=== PATIENT | male | born 1930 | race Caucasian/White ===

== ENCOUNTER → 2016-06-26 | Outpatient (CLI) | payer OTHER | END | disposition home or self-care (01) | LOC: ROC 10:45 | PROVIDERS: ATTEND Radiology Radiation Oncology | DX: C61 Malignant neoplasm of prostate (principal) | CPT/HCPCS: 99212; G0463 ==

== ENCOUNTER 2016-07-24 07:24 | Emergency (ER) | payer OTHER ==
[~2016-07-24] VITALS: Ht 177.8 cm; Wt 95.0 kg
[2016-07-24] MEDS ORDERED: ONDANSETRON 2MG/ML, 2ML IVPush ONE (08:30)
[2016-07-24] MEDS ORDERED: MORPHINE SULFATE 4 MG/ML, 1ML IVPush PRN (08:30)
[2016-07-24] MEDS ORDERED: ONDANSETRON 2MG/ML, 2ML ONE (08:53)
[2016-07-24] MEDS ORDERED: MORPHINE SULFATE 4 MG/ML, 1ML ONE (08:53)
[2016-07-24 08:59] LABS: BLOOD UREA NITROGEN 27 mg/dL (7-18)
[2016-07-24] MEDS ORDERED: DIPHENHYDRAMINE 50 MG/ML, 1ML ONE (09:44)
[2016-07-24] MEDS ORDERED: DIPHENHYDRAMINE 50 MG/ML, 1ML IVPush ONE (10:00)
[2016-07-24 11:39] VITALS: BP 150/88
== END 2016-07-24 11:42 | disposition home or self-care (01) ==
LOC: ED 11:11
DX: M54.5 Low back pain (principal); M75.40 Impingement syndrome of unspecified shoulder; I10 Essential (primary) hypertension
CPT/HCPCS: 36415; 72157; 72158; 80048; 82040; 85025; 85610; 85730; 96374; 96375; 99285; J2405

== ENCOUNTER → 2016-08-04 | Outpatient (CLI) | payer OTHER | END | disposition home or self-care (01) | LOC: CFH 06:40 | PROVIDERS: ATTEND Family Medicine | DX: I71.4 Abdominal aortic aneurysm, without rupture (principal); Z95.1 Presence of aortocoronary bypass graft; Z95.2 Presence of prosthetic heart valve | CPT/HCPCS: 71020; 93978 ==

== ENCOUNTER → 2017-04-27 | Outpatient (CLI) | payer OTHER | END | disposition home or self-care (01) | LOC: CFH 09:44 | PROVIDERS: ATTEND Internal Medicine Cardiovascular Disease | DX: I08.1 Rheumatic disorders of both mitral and tricuspid valves (principal); I25.2 Old myocardial infarction; I48.91 Unspecified atrial fibrillation; I71.4 Abdominal aortic aneurysm, without rupture; Z87.891 Personal history of nicotine dependence; Z95.1 Presence of aortocoronary bypass graft; Z95.3 Presence of xenogenic heart valve | CPT/HCPCS: 93306 ==

== ENCOUNTER → 2017-12-11 | Outpatient (CLI) | payer OTHER ==
[~2017-12-11] MED LIST: OMNIPAQUE 350 MG/ML, 100ML BOTTLE ONE
== END | disposition home or self-care (01) ==
LOC: CFH 10:46
PROVIDERS: ATTEND Radiology Radiation Oncology
DX: I71.4 Abdominal aortic aneurysm, without rupture (principal); I51.7 Cardiomegaly
CPT/HCPCS: 74177; 82565; Q9967

== ENCOUNTER → 2017-12-13 | Outpatient (CLI) | payer OTHER | END | disposition home or self-care (01) | LOC: ROC 08:29 | PROVIDERS: ATTEND Radiology Radiation Oncology | DX: C61 Malignant neoplasm of prostate (principal) | CPT/HCPCS: 99212; G0463 ==

== ENCOUNTER → 2018-04-17 | Outpatient (CLI) | payer MEDICARE, OTHER | END | disposition home or self-care (01) | LOC: CFH 10:11 | PROVIDERS: ATTEND Internal Medicine Cardiovascular Disease | DX: I11.9 Hypertensive heart disease without heart failure (principal); I08.1 Rheumatic disorders of both mitral and tricuspid valves; I48.91 Unspecified atrial fibrillation; E78.5 Hyperlipidemia, unspecified; I25.810 Atherosclerosis of coronary artery bypass graft(s) without angina pectoris; Z86.79 Personal history of other diseases of the circulatory system; Z95.2 Presence of prosthetic heart valve; Z87.891 Personal history of nicotine dependence | CPT/HCPCS: 93306 ==

== ENCOUNTER → 2019-04-16 | Outpatient (CLI) | payer MEDICARE, OTHER | END | disposition home or self-care (01) | LOC: CFH 10:36 | PROVIDERS: ATTEND Internal Medicine Cardiovascular Disease | DX: I08.8 Other rheumatic multiple valve diseases (principal); I11.9 Hypertensive heart disease without heart failure; E78.5 Hyperlipidemia, unspecified; I48.91 Unspecified atrial fibrillation; Z95.2 Presence of prosthetic heart valve; Z95.1 Presence of aortocoronary bypass graft | CPT/HCPCS: 93306 ==

== ENCOUNTER → 2020-03-17 | Outpatient (CLI) | payer MEDICARE, OTHER | END | disposition home or self-care (01) | LOC: CFH 11:24 | PROVIDERS: ATTEND Family Medicine | DX: R05 Cough (principal) | CPT/HCPCS: 71046 ==

== ENCOUNTER → 2020-05-07 | Outpatient (CLI) | payer MEDICARE, OTHER | END | disposition home or self-care (01) | LOC: CFH 11:12 | PROVIDERS: ATTEND Internal Medicine Cardiovascular Disease | DX: I08.8 Other rheumatic multiple valve diseases (principal); I11.9 Hypertensive heart disease without heart failure; I27.20 Pulmonary hypertension, unspecified | CPT/HCPCS: 93306 ==

== ENCOUNTER 2020-07-31 08:00 | Emergency (ER) | payer MEDICARE ==
[~2020-07-31] VITALS: Ht 172.7 cm; Wt 92.9 kg
[2020-07-31 08:28] LABS: BASOPHILS % (AUTO) 0 % (0-1); EOSINOPHILS % (AUTO) 0 % (1-7); LYMPHOCYTES % (AUTO) 5 % (22-44); MEAN CORPUSCULAR HEMOGLOBIN 32.8 pg (27.5-34.5); MEAN CORPUSCULAR HGB CONC 33.7 g/dL (33.2-36.2); MONOCYTES % (AUTO) 9 % (2-9); NEUTROPHILS % (AUTO) 86 % (42-75); PLATELET COUNT 138 x10^3/uL (130-400); RED BLOOD COUNT 4.21 x10^6/uL (4.38-5.82); RED CELL DISTRIBUTION WIDTH 16.9 % (9.4-14.8)
[2020-07-31 08:37] LABS: ALBUMIN 3.8 g/dL (3.4-5.0); ANION GAP 3 mmol/L (5-15); CALCIUM 9.7 mg/dL (8.5-10.1); CHLORIDE 100 mmol/L (98-107); CREATININE 0.95 mg/dL (0.7-1.3)
[2020-07-31 09:01] LABS: MD SCAN
--- NOTE | 2020-07-31 10:02 | NUR ---
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
--- NOTE | 2020-07-31 10:05 | NUR ---
PT WALKED BACK FROM TRIAGE WITH CHIEF COMPLAINT OF "SOMETHING IN MY LUNGS" DENIES SOB, CP, FEVER, N/V, RECENT TRAUMA
--- NOTE | 2020-07-31 10:09 | NUR ---
DEE DEE SANDOVAL AT BEDSIDE
[2020-07-31] MEDS ORDERED: ALBUTEROL SULFATE 2.5 MG/3 ML ONE (10:15)
[2020-07-31] MEDS ORDERED: KETOROLAC 30 MG/1 ML ONE (10:15)
[2020-07-31] MEDS ORDERED: DEXAMETHASONE 4 MG TABLET ONE (10:15)
[2020-07-31] MEDS ORDERED: ALBUTEROL/IPRATROPIUM 2.5MG/0.5MG, 3 ML ONE (10:22)
[2020-07-31] MEDS ORDERED: ALBUTEROL/IPRATROPIUM 2.5MG/0.5MG, 3 ML NPPB ONE (10:30)
[2020-07-31] MEDS ORDERED: KETOROLAC 30 MG/1 ML IM ONE (11:00)
[2020-07-31] MEDS ORDERED: DEXAMETHASONE 4 MG TABLET PO ONE (11:00)
--- NOTE | 2020-07-31 11:15 | NUR ---
PT RESTING IN BED, CALL LIGHT IN REACH
[2020-07-31] MEDS ORDERED: CEFTRIAXONE 1,000 MG IM ONE (11:30)
[2020-07-31 11:38] VITALS: BP 135/77
[2020-07-31] MEDS ORDERED: CEFTRIAXONE 1,000 MG ONE (11:41)
--- NOTE | 2020-07-31 12:20 | NUR ---
Discharge instructions reviewed
== END 2020-07-31 12:40 | disposition home or self-care (01) ==
LOC: ED 10:30
DX: J18.0 Bronchopneumonia, unspecified organism (principal); I10 Essential (primary) hypertension; I25.2 Old myocardial infarction; I48.91 Unspecified atrial fibrillation
CPT/HCPCS: 36415; 71045; 80048; 82040; 85025; 94640; 96372; 99284; J0696; J1885

== ENCOUNTER 2020-10-09 03:33 | Emergency (ER) | payer MEDICARE ==
[~2020-10-09] VITALS: Ht 175.3 cm; Wt 89.5 kg
[2020-10-09 03:57] VITALS: BP 131/65
[2020-10-09 05:10] LABS: MICROSCOPIC INDICATED
--- NOTE | 2020-10-09 06:03 | NUR ---
Patient/Caregiver given discharge instructions and they have confirmed that they understand the instructions. Patient ambulatory with steady gait. NAD, all questions answered appropriately, denies additional needs at this time. No personal belongings left in room after discharge.
== END 2020-10-09 06:06 | disposition home or self-care (01) ==
LOC: ED 04:00
DX: N30.01 Acute cystitis with hematuria (principal); I10 Essential (primary) hypertension; I48.91 Unspecified atrial fibrillation; I25.2 Old myocardial infarction; Z90.49 Acquired absence of other specified parts of digestive tract; Z87.891 Personal history of nicotine dependence
CPT/HCPCS: 81001; 87077; 87086; 87186; 99283

== ENCOUNTER 2020-11-09 15:05 | Emergency (ER) | payer MEDICARE ==
[~2020-11-09] VITALS: Ht 175.3 cm; Wt 90.6 kg
--- NOTE | 2020-11-09 15:19 | NUR ---
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
[2020-11-09 15:51] LABS: BASOPHILS % (AUTO) 1 % (0-1); EOSINOPHILS % (AUTO) 1 % (1-7); LYMPHOCYTES % (AUTO) 13 % (22-44); MEAN CORPUSCULAR HEMOGLOBIN 29.2 pg (27.5-34.5); MEAN PLATELET VOLUME 8.1 fL (7.4-10.4); MONOCYTES % (AUTO) 16 % (2-9); NEUTROPHILS % (AUTO) 69 % (42-75); PLATELET COUNT 198 x10^3/uL (130-400); RED BLOOD COUNT 3.05 x10^6/uL (4.38-5.82); RED CELL DISTRIBUTION WIDTH 16.9 % (9.4-14.8)
[2020-11-09 16:05] LABS: ALANINE AMINOTRANSFERASE 17 U/L (12-78); ALBUMIN 3.2 g/dL (3.4-5.0); ANION GAP 6 mmol/L (5-15); CALCIUM 9.2 mg/dL (8.5-10.1); CHLORIDE 102 mmol/L (98-107); CREATININE 1.43 mg/dL (0.7-1.3)
[2020-11-09 16:10] LABS: ALKALINE PHOSPHATASE 160 U/L (45-117); BILIRUBIN,TOTAL 0.9 mg/dL (0.2-1.0); TROPONIN I < 0.015 ng/mL (0.000-0.045)
[2020-11-09] MEDS ORDERED: FUROSEMIDE 20 MG/2 ML IV ONE (18:30)
[2020-11-09] MEDS ORDERED: FUROSEMIDE 20 MG/2 ML ONE (18:36)
--- NOTE | 2020-11-09 18:42 | NUR ---
PT TO ROOM AT THIS TIME. STATES HEMATURIA X 3 WEEKS. SOB ON EXERTION. MD AT BS, PLAN TO TRANSFUSE 2 UNITS & DC HOME LATER THIS EVENING.
--- NOTE | 2020-11-09 18:45 | NUR ---
CONSENT SIGNED BY PT.
[2020-11-09 20:10] VITALS: BP 123/61
[2020-11-09 20:29] VITALS: BP 110/63
--- NOTE | 2020-11-09 20:30 | NUR ---
BLOOD TX. PT TOLERATING WELL
[2020-11-09 21:22] VITALS: BP 123/66
[2020-11-09 21:38] VITALS: BP 118/65
[2020-11-09 21:54] VITALS: BP 126/70
--- NOTE | 2020-11-09 22:16 | NUR ---
report from [place] [facility]iron.
[2020-11-09 22:40] VITALS: BP 119/77
[2020-11-10 03:49] LABS: MICROSCOPIC INDICATED
== END 2020-11-09 22:43 | disposition home or self-care (01) ==
LOC: ED 19:22
DX: D64.9 Anemia, unspecified (principal); R31.9 Hematuria, unspecified; R06.00 Dyspnea, unspecified; Z87.891 Personal history of nicotine dependence; R94.31 Abnormal electrocardiogram [ECG] [EKG]
CPT/HCPCS: 36415; 36430; 71045; 80053; 81001; 84484; 85025; 86850; 86900; 86902; 86922; 86923; 93005; 96374; 99285; J1940; P9016